=== PATIENT | female | born 1975 | race Caucasian/White ===

== ENCOUNTER 2019-06-20 10:27 | Emergency (ER) | payer MEDICAID, OTHER ==
[~2019-06-20] VITALS: Ht 165.1 cm; Wt 73.9 kg
[2019-06-20 10:28] VITALS: BP 130/87
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
[2019-06-20] MEDS ORDERED: GABA-640 PO (10:49)
[2019-06-20] MEDS ORDERED: MELO-174 PO (10:50)
--- NOTE | 2019-06-20 10:55 | NUR ---
DR. PACK AT BEDSIDE
[2019-06-20] MEDS ORDERED: KETOROLAC 60 MG/2 ML VIAL IM ONE (11:00)
[2019-06-20] MEDS ORDERED: ONDANSETRON 4 MG ODT PO ONE (11:15)
[2019-06-20 12:37] VITALS: BP 130/87
--- NOTE | 2019-06-20 12:37 | NUR ---
Patient discharged with v/s stable. Written and verbal after care instructions given and explained. Patient alert, oriented and verbalized understanding of instructions. Ambulatory with steady gait. All questions addressed prior to discharge. ID band removed. Patient advised to follow up with PMD. Rx of KEFLEX,NAPROSYN given. Patient educated on indication of medication including possible reaction and side effects. Opportunity to ask questions provided and answered.
== END 2019-06-20 12:37 | disposition home or self-care (01) ==
LOC: MED 10:27
DX: S60.222A Contusion of left hand, initial encounter (principal); S40.012A Contusion of left shoulder, initial encounter; S60.221A Contusion of right hand, initial encounter; S80.02XA Contusion of left knee, initial encounter; S80.01XA Contusion of right knee, initial encounter; S09.90XA Unspecified injury of head, initial encounter; L03.114 Cellulitis of left upper limb; I45.6 Pre-excitation syndrome; Z98.890 Other specified postprocedural states; Z79.899 Other long term (current) drug therapy; V89.2XXA Person injured in unspecified motor-vehicle accident, traffic, initial encounter; Y93.89 Activity, other specified; Y92.89 Other specified places as the place of occurrence of the external cause; Y99.8 Other external cause status
CPT/HCPCS: 73030; 73130; 81002; 81025; 90471; 90715; 93005; 96372; 99283; J1885; Q0092; Q0162

== ENCOUNTER 2019-07-08 19:16 | Emergency (ER) | payer OTHER ==
[~2019-07-08] VITALS: Ht 165.1 cm; Wt 77.1 kg
[~2019-07-08 19:16] MED LIST: GABA-640 PO; MELO-174 PO
[2019-07-08 19:18] VITALS: BP 153/100
--- NOTE | 2019-07-08 19:22 | NUR ---
PT TO LOBBY VIA WHEELCHAIR.
--- NOTE | 2019-07-08 19:57 | NUR ---
PT TAKEN TO BED 11
--- NOTE | 2019-07-08 20:00 | NUR ---
XRAY AT BEDSIDE
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
--- NOTE | 2019-07-08 21:01 | NUR ---
DR BERGMAN AT BEDSIDE
--- NOTE | 2019-07-08 21:02 | NUR ---
REPORT GIVEN TO ANAHY MADSEN
[2019-07-08] MEDS ORDERED: NEOMYCIN/POLYMYXIN/BACITRACIN 0.9 GM/1 PKT TP ONE (21:20)
--- NOTE | 2019-07-08 21:22 | NUR ---
valorie wrap bandage applied to rt knee, +cms before and after application.
[2019-07-08 21:28] VITALS: BP 155/97
--- NOTE | 2019-07-08 21:28 | NUR ---
Patient discharged with v/s stable. Written and verbal after care instructions given and explained. Patient verbalized understanding. Ambulatory with steady gait. All questions addressed prior to discharge. Advised to follow up with PMD. pt provided with ice pack.
== END 2019-07-08 21:28 | disposition home or self-care (01) ==
LOC: MED 19:16
DX: S80.01XA Contusion of right knee, initial encounter (principal); Z79.899 Other long term (current) drug therapy; V29.9XXA Motorcycle rider (driver) (passenger) injured in unspecified traffic accident, initial encounter; Y93.89 Activity, other specified; Y92.488 Other paved roadways as the place of occurrence of the external cause; Y99.8 Other external cause status
CPT/HCPCS: 73562; 99283; Q0092